=== PATIENT | female | born 1960 | race African-American/Black ===

== ENCOUNTER 2016-09-19 08:52 | Emergency (ER) | payer OTHER ==
[~2016-09-19] VITALS: Ht 167.6 cm; Wt 54.4 kg
[~2016-09-19 08:52] MED LIST: FLEXERIL PO; KEFLEX500 MG PO; NORCO 5-325 TA1 EACH PO; PYRIDIUM200 MG PO
[2016-09-19] MEDS ORDERED: NORCO 5-325 TA1 EACH PO (10:48)
[2016-09-19 11:06] VITALS: BP 149/94
== END 2016-09-19 11:08 | disposition home or self-care (01) ==
LOC: ER 08:52
DX: S82.001A Unspecified fracture of right patella, initial encounter for closed fracture (principal); M25.461 Effusion, right knee; F10.99 Alcohol use, unspecified with unspecified alcohol-induced disorder; F12.10 Cannabis abuse, uncomplicated; Z90.49 Acquired absence of other specified parts of digestive tract; W18.30XA Fall on same level, unspecified, initial encounter; Y93.89 Activity, other specified; Y92.096 Garden or yard of other non-institutional residence as the place of occurrence of the external cause; Y99.8 Other external cause status

== ENCOUNTER 2017-06-08 18:03 | Emergency (ER) | payer OTHER ==
[~2017-06-08] VITALS: Ht 167.6 cm; Wt 56.7 kg
[2017-06-08] MEDS ORDERED: NORCO 5-325 TA1 EACH PO (19:55)
== END 2017-06-08 20:11 | disposition home or self-care (01) ==
LOC: ER 18:03
DX: S63.614A Unspecified sprain of right ring finger, initial encounter (principal); W23.0XXA Caught, crushed, jammed, or pinched between moving objects, initial encounter; Y93.89 Activity, other specified; Y92.89 Other specified places as the place of occurrence of the external cause; Y99.8 Other external cause status

== ENCOUNTER 2018-01-30 22:54 | Emergency (ER) | payer OTHER ==
[~2018-01-30] VITALS: Ht 165.1 cm; Wt 58.1 kg
[2018-01-31] MEDS ORDERED: PREDNISONE 20 M20 MG PO (00:51)
[2018-01-31] MEDS ORDERED: PEPCID20 MG PO (00:51)
[2018-01-31 01:46] VITALS: BP 122/73
== END 2018-01-31 01:47 | disposition home or self-care (01) ==
LOC: ER 22:54
DX: L50.9 Urticaria, unspecified (principal); F17.210 Nicotine dependence, cigarettes, uncomplicated; Z90.49 Acquired absence of other specified parts of digestive tract

== ENCOUNTER 2018-02-03 12:25 | Emergency (ER) | payer OTHER ==
[~2018-02-03] VITALS: Ht 165.1 cm; Wt 59.0 kg
--- NOTE | ~2018-02-03 | EKG ---
[place] [address] [facility] [place] [address] ELECTROCARDIOGRAM REPORT Name: KARL LEMOS Room #: [facility]ENTERJoaquín#: [id number] Admission: 02/03/18 Attend Phys: Discharge: 02/03/18 Date of : 60 Report #: [id number] THIS REPORT FOR: //name// [facility] ED Test Date: 2018-02-03 Test Time: 12:37:55 Pat Name: KARL LEMOS Department: Room: Gender: F Education Trainer: CARLOS : 1960 Requested By: Mariam Alanis Order Number: [id number] MD: Lobito Spear Measurements Intervals [place] Rate: 113 P: 80 TN: 165 QRS: 32 QRSD: 78 T: 87 QT: 355 QTc: 487 Interpretive Statements Sinus tachycardia LAE, consider biatrial enlargement Anterior infarct, old Nonspecific T abnormalities, lateral leads Compared to ECG 11/27/2007 16:17:03 Electronically Signed On 02-04-2018 8:29:32 CDT by Lobito Spear [email or web address] <ELECTRONICALLY SIGNED> By: Lobito Spear MD 02/04/18 0829 1237 1237 Lobito Spear MD /JORGE L
[~2018-02-03 12:25] MED LIST changes: +PEPCID20 MG PO; +PREDNISONE 20 M20 MG PO
[2018-02-03 13:12] LABS: ABSOLUTE NEUTROPHILS 9.7 thou/uL (1.4-8.2); BASOPHILS 0.5 % (0.0-2.0); EOSINOPHILS 0.1 % (0.0-3.0); HEMATOCRIT 41.3 % (37.0-47.0); HEMOGLOBIN 13.8 gm/dL (12.0-15.0); LYMPHOCYTES 15.4 % (24.0-44.0); MCH 27.9 pg (26.0-34.0); MCHC 33.5 g/dL (28.0-37.0); MCV 83.4 fL (80.0-100.0); MONOCYTES 3.5 % (1.0-8.0); PLATELET COUNT 189 thou/uL (150-400); POLYS 80.5 % (36.0-66.0); RBC 4.95 mil/uL (4.20-5.00); RDW 14.4 % (10.5-14.5); WBC 12.1 thou/uL (4.0-11.0)
[2018-02-03 13:22] LABS: ANION GAP 9 mmol/L (7-16); BUN 17 mg/dL (7-18); CALCIUM 9.6 mg/dL (8.5-10.1); CHLORIDE 102 mmol/L (98-107); CO2 28 mmol/L (21-32); CREATININE 0.9 mg/dL (0.6-1.0); GLUCOSE 91 mg/dL (74-106); POTASSIUM 3.2 mmol/L (3.5-5.1); SODIUM 139 mmol/L (136-145)
[2018-02-03 13:31] LABS: TROPONIN-I <0.06 ng/mL (<0.06)
[2018-02-03] MEDS ORDERED: VISTARIL 25 MG25 M1 PO (13:55)
[2018-02-03 14:26] VITALS: BP 149/89
== END 2018-02-03 14:27 | disposition home or self-care (01) ==
LOC: ER 12:25
PROVIDERS: Student in an Organized Health Care Education/Training Program
DX: F41.9 Anxiety disorder, unspecified (principal); F17.210 Nicotine dependence, cigarettes, uncomplicated; Z90.49 Acquired absence of other specified parts of digestive tract

== ENCOUNTER 2018-07-11 20:03 | Emergency (ER) | payer OTHER ==
[~2018-07-11] VITALS: Ht 167.6 cm; Wt 58.1 kg
[~2018-07-11 20:03] MED LIST changes: +VISTARIL 25 MG25 M1 PO
[2018-07-11 22:10] LABS: URINE BILIRUBIN NEGATIVE (Negative); URINE BLOOD 3+ (Negative); URINE CLARITY CLEAR; URINE COLOR YELLOW; URINE GLUCOSE-RANDOM* NEGATIVE (Negative); URINE KETONES TRACE (Negative); URINE LEUKOCYTES NEGATIVE (Negative); URINE NITRITE NEGATIVE (Negative); URINE PROTEIN (DIPSTICK) 1+ (Negative); URINE SPECIFIC GRAVITY >= 1.030 (1.005-1.035); URINE UROBILINOGEN 0.2 E.U./dl (0.2-1.0)
[2018-07-11 22:14] LABS: ABSOLUTE NEUTROPHILS 3.8 thou/uL (1.4-8.2); BASOPHILS 0.6 % (0.0-2.0); EOSINOPHILS 0.3 % (0.0-3.0); HEMATOCRIT 44.5 % (37.0-47.0); HEMOGLOBIN 14.9 gm/dL (12.0-15.0); LYMPHOCYTES 14.2 % (24.0-44.0); MCHC 33.5 g/dL (28.0-37.0); MCV 83.6 fL (80.0-100.0); MONOCYTES 11.7 % (1.0-8.0); PLATELET COUNT 159 thou/uL (150-400); POLYS 73.2 % (36.0-66.0); RBC 5.32 mil/uL (4.20-5.00); RDW 14.1 % (10.5-14.5); WBC 5.1 thou/uL (4.0-11.0)
[2018-07-11 22:22] LABS: MUCUS >6 Heavy strn/LPF (None Seen); SQUAMOUS >10 Many /LPF (0-3)
[2018-07-11 22:23] LABS: CALCIUM 9.3 mg/dL (8.5-10.1); POTASSIUM 3.3 mmol/L (3.5-5.1)
[2018-07-11 22:24] LABS: BACTERIA None Seen /HPF (None Seen); CASTS None Seen /LPF (None Seen); CRYSTALS None Seen /LPF (None Seen); URINE WBC None Seen /HPF (0-5); YEAST Present (None Seen)
[2018-07-11 22:28] LABS: ALBUMIN 3.8 g/dL (3.4-5.0); TOTAL BILIRUBIN 0.3 mg/dL (<0.1-1.0); TOTAL PROTEIN 7.3 g/dL (6.4-8.2)
[2018-07-11] MEDS ORDERED: OSELB75 PO (23:55)
[2018-07-11] MEDS ORDERED: IBUPROFEN 600600 M1 PO (23:55)
[2018-07-11] MEDS ORDERED: TESSALON PERLE100 MG PO (23:55)
[2018-07-11] MEDS ORDERED: PHENERGAN 25 MG25 M1 PO (23:55)
[2018-07-12 01:02] VITALS: BP 101/60
== END 2018-07-12 01:05 | disposition home or self-care (01) ==
LOC: ER 20:03
PROVIDERS: Physician Assistant
DX: J34.89 Other specified disorders of nose and nasal sinuses (principal); L53.8 Other specified erythematous conditions; F17.210 Nicotine dependence, cigarettes, uncomplicated; F41.9 Anxiety disorder, unspecified; Z90.49 Acquired absence of other specified parts of digestive tract

== ENCOUNTER 2018-07-20 19:07 | Emergency (ER) | payer OTHER ==
[~2018-07-20] VITALS: Ht 165.1 cm; Wt 58.1 kg
[~2018-07-20 19:07] MED LIST changes: +IBUPROFEN 600600 M1 PO; +OSELB75 PO; +PHENERGAN 25 MG25 M1 PO; +TESSALON PERLE100 MG PO
[2018-07-20] MEDS ORDERED: DOXYCYCLINE 10100 MG PO (20:19)
[2018-07-20 20:44] VITALS: BP 123/101
== END 2018-07-20 20:44 | disposition home or self-care (01) ==
LOC: ER 19:07
DX: J32.0 Chronic maxillary sinusitis (principal); F41.9 Anxiety disorder, unspecified; F17.210 Nicotine dependence, cigarettes, uncomplicated; Z90.49 Acquired absence of other specified parts of digestive tract

== ENCOUNTER 2018-11-18 22:55 | Emergency (ER) | payer OTHER ==
[~2018-11-18] VITALS: Ht 160 cm; Wt 59.0 kg
[~2018-11-18 22:55] MED LIST changes: +DOXYCYCLINE 10100 MG PO
[2018-11-18 23:10] LABS: URINE BILIRUBIN NEGATIVE (Negative); URINE BLOOD 2+ (Negative); URINE CLARITY SL CLOUDY; URINE COLOR YELLOW; URINE GLUCOSE-RANDOM* NEGATIVE (Negative); URINE KETONES NEGATIVE (Negative); URINE NITRITE-REFLEX NEGATIVE (Negative); URINE PROTEIN (DIPSTICK) 1+ (Negative); URINE SPECIFIC GRAVITY 1.015 (1.005-1.035)
[2018-11-18 23:17] LABS: BACTERIA-REFLEX 1-9 Few /HPF (None Seen); CASTS None Seen /LPF (None Seen); MUCUS 0-3 Light strn/LPF (None Seen); SQUAMOUS 0-3 Few /LPF (0-3); URINE LEUKOCYTES-REFLEX 1+ (Negative); URINE RBC 3-10 Few /HPF (0-2); URINE WBC-REFLEX 6-15 Few /HPF (0-5)
[2018-11-18 23:18] LABS: CRYSTALS None Seen /LPF (None Seen)
[2018-11-18] MEDS ORDERED: PYRIDIUM200 MG PO (23:21)
[2018-11-18] MEDS ORDERED: MACROBID 100 M100 M2 PO (23:21)
[2018-11-18 23:49] VITALS: BP 129/92
== END 2018-11-18 23:49 | disposition home or self-care (01) ==
LOC: ER 22:55
PROVIDERS: Emergency Medicine
DX: N30.00 Acute cystitis without hematuria (principal); F17.210 Nicotine dependence, cigarettes, uncomplicated; F41.9 Anxiety disorder, unspecified; Z90.49 Acquired absence of other specified parts of digestive tract

== ENCOUNTER 2021-04-18 13:41 | Emergency (ER) | payer OTHER ==
[~2021-04-18 13:41] MED LIST changes: +MACROBID 100 M100 M2 PO
[2021-04-18 13:45] VITALS: BP 160/101
== END 2021-04-18 14:46 | disposition home or self-care (01) ==
LOC: ER 13:41
DX: U07.1 COVID-19 (principal); F41.9 Anxiety disorder, unspecified; F17.210 Nicotine dependence, cigarettes, uncomplicated; Z90.89 Acquired absence of other organs; Z98.890 Other specified postprocedural states; Z79.891 Long term (current) use of opiate analgesic; Z79.899 Other long term (current) drug therapy